=== PATIENT | female | born 1950 | race Caucasian/White ===

== ENCOUNTER 2024-04-12 05:06 | Day surgery (SDC) | payer OTHER ==
[2024-04-11 13:22] VITALS: BMI 26.4
[2024-04-12] MEDS ORDERED: LIDOCAINE HCL/PF 1% SDV 5ML VIAL ONE (07:13)
[2024-04-12] MEDS ORDERED: PROPOFOL 20 ML ONE (12:18)
[2024-04-12] MEDS ORDERED: MIDAZOLAM HCL 2 MG/2 ML SINGLE DOSE VIAL ONE (12:18)
[2024-04-12] MEDS ORDERED: CLINDAMYCIN PHOSPHATE 600 MG/4 ML VIAL ONE (12:31)
[2024-04-12] MEDS: CLINDAMYCIN 600 MG PREMIX BAG IVPB ONE (12:35)
[2024-04-12] MEDS: LIDOCAINE HCL 1% PRESERVATIVE FREE - 30ML VIAL IJ ONE (12:43)
[2024-04-12] MEDS ORDERED: ONDANSETRON 4 MG/2 ML VIAL ONE (13:13)
[2024-04-12 13:39] VITALS: RESP 18
[2024-04-12 14:47] VITALS: BP 120/70; PULSE 72; TEMP 97
== END 2024-04-12 14:52 | disposition home or self-care (01) ==
LOC: JASU-SURG 05:06
PROVIDERS: ATTEND Pain Medicine Pain Medicine
PROC: 00HU3MZ Insertion of Neurostimulator Lead into Spinal Canal, Percutaneous Approach (ICD-10-PCS; principal; 2024-04-12 12:43)
DX: G89.4 Chronic pain syndrome (principal); M54.16 Radiculopathy, lumbar region; E11.42 Type 2 diabetes mellitus with diabetic polyneuropathy
CPT/HCPCS: 63650; C1897; 76000-TC-FY; 82962; C1889

== ENCOUNTER 2024-11-09 05:15 | Day surgery (SDC) | payer OTHER ==
[2024-11-06 16:39] VITALS: BMI 26.2
[2024-11-09] MEDS ORDERED: PROPOFOL 20 ML ONE (08:20)
[2024-11-09] MEDS ORDERED: SUCCINYLCHOLINE CHLORIDE 200 MG/10 ML SYRINGE ONE (08:20)
[2024-11-09] MEDS ORDERED: MIDAZOLAM HCL 2 MG/2 ML SINGLE DOSE VIAL ONE (08:20)
[2024-11-09] MEDS ORDERED: LIDOCAINE HCL/PF 2% SDV 5ML VIAL ONE ×2 (08:20→10:04)
[2024-11-09] MEDS ORDERED: CLINDAMYCIN PHOSPHATE 600 MG/4 ML VIAL ONE ×2 (08:22→08:27)
[2024-11-09] MEDS ORDERED: ONDANSETRON 4 MG/2 ML VIAL ONE (08:23)
[2024-11-09] MEDS ORDERED: CLINDAMYCIN 600MG PREMIX IVPB 600 MG/50 ML BAG IVPB ONE (08:27)
[2024-11-09] MEDS ORDERED: ACETAMINOPHEN 500 MG TABLET (FP) PO ONE (08:34)
[2024-11-09] MEDS: LIDOCAINE HCL 1% PRESERVATIVE FREE - 30ML VIAL IJ ONE (08:46)
[2024-11-09] MEDS: LIDOCAINE HCL/PF 2% SDV 5ML VIAL INF ONE (08:50)
[2024-11-09] MEDS ORDERED: ONDANSETRON 4 MG/2 ML VIAL IVPUSH PRN ×2 (10:43→16:14)
[2024-11-09 13:35] VITALS: RESP 18; TEMP 97.6
[2024-11-09 13:40] VITALS: BP 110/60; PULSE 78
[2024-11-09] MEDS ORDERED: LACTATED RINGERS SOLUTION 1,000 ML IV SCH (16:15)
== END 2024-11-09 13:30 | disposition home or self-care (01) ==
LOC: JASU-SURG 05:15
PROVIDERS: ATTEND Pain Medicine Pain Medicine
PROC: 0JH73BZ Insertion of Single Array Stimulator Generator into Back Subcutaneous Tissue and Fascia, Percutaneous Approach (ICD-10-PCS; 2024-11-09)
PROC: 01HY3MZ Insertion of Neurostimulator Lead into Peripheral Nerve, Percutaneous Approach (ICD-10-PCS; principal; 2024-11-09 08:46)
DX: G89.4 Chronic pain syndrome (principal); M54.16 Radiculopathy, lumbar region; M54.50 Low back pain, unspecified
CPT/HCPCS: 63650; 63685; C1778; L8699; 76000-TC-FY; 94760; C1767